=== PATIENT | male | born 1990 | race African-American/Black ===

== ENCOUNTER 2017-10-02 13:41 | Emergency (ER) | payer SELFPAY ==
[~2017-10-02] VITALS: Ht 188 cm; Wt 128.0 kg
[2017-10-02 14:26] VITALS: BP 135/94
== END 2017-10-02 16:17 | disposition left against medical advice (07) ==
LOC: ER 15:19
DX: M79.641 Pain in right hand (principal); Z53.21 Procedure and treatment not carried out due to patient leaving prior to being seen by health care provider

== ENCOUNTER 2025-04-18 10:30 | Emergency (ER) | payer MEDICAID ==
[~2025-04-18] VITALS: Ht 190.5 cm; Wt 136.0 kg
[2025-04-18 11:25] VITALS: TEMP 36.9; O2SAT 98
[2025-04-18] MEDS ORDERED: IBUP-2029 MT (12:09)
[2025-04-18] MEDS ORDERED: TOPUD PO (12:09)
[2025-04-18 12:24] VITALS: BP 143/83; PULSE 76; RESP 16; O2SAT 100
[2025-04-18] MEDS: ALBUTEROL (0.083%) 2.5MG/3ML NEB HHN STA (12:47)
[2025-04-18] MEDS: IPRATROPIUM BROMIDE (0.02%) 0.5MG/2.5ML NEB HHN STA (12:47)
== END 2025-04-18 11:11 | disposition home or self-care (01) ==
LOC: ER 10:30
DX: M25.561 Pain in right knee (principal); F12.10 Cannabis abuse, uncomplicated; J45.909 Unspecified asthma, uncomplicated; W18.30XA Fall on same level, unspecified, initial encounter; Y93.89 Activity, other specified; Y92.89 Other specified places as the place of occurrence of the external cause; Y99.8 Other external cause status
CPT/HCPCS: 73562; 73590; 99284; Z7610